=== PATIENT | female | born 2005 | race Caucasian/White ===

== ENCOUNTER 2024-10-14 08:37 | Emergency (ER) | payer OTHER ==
[~2024-10-14] VITALS: Ht 157.5 cm; Wt 75.2 kg
[2024-10-14] MEDS ORDERED: BCP (08:47)
[2024-10-14] MEDS ORDERED: METH-1165 PO (10:37)
[2024-10-14] MEDS ORDERED: NAPR-837 PO (10:37)
[2024-10-14 10:53] VITALS: BP 115/58; TEMP 98.6; O2SAT 97
== END 2024-10-14 10:57 | disposition home or self-care (01) ==
LOC: M ED 08:37
DX: M54.50 Low back pain, unspecified (principal); M54.6 Pain in thoracic spine; Z79.899 Other long term (current) drug therapy

== ENCOUNTER → 2025-01-28 | Outpatient (CLI) | payer OTHER ==
[~2025-01-28] MED LIST: BCP; METH-1165 PO; NAPR-837 PO
== END ==
LOC: M PLAIMG 09:20
PROVIDERS: ATTEND Internal Medicine
DX: G20.C Parkinsonism, unspecified (principal)